=== PATIENT | male | born 1965 | race Caucasian/White ===

== ENCOUNTER 2017-11-08 15:11 | Emergency (ER) | payer SELFPAY ==
[2017-11-08 15:18] VITALS: BP 138/93; BMI 29.2
--- NOTE | 2017-11-08 15:42 | DR.GENAD ---
HPI - PCP Primary Care Physician: dr gill - HPI Comment HPI Comment: PATIENT SAID HE HAS ROTATORY CUFF INJURY ON THAT SAME SHOULDER. ROM DECREASE. PULSES INTACT. - Complaint/Symptoms Chief Complaint Doctors Comments: LEFT SHOULDER PAIN FOR DAYS. FELL LAST NIGHT AND FELL ON LT SHOULDER AND IS HAVING INCREASE PAIN SINCE. Chief Complaint:: pt stated he has been having problems with his left shoulder for over a month and last night he fell on his left shoulder causing more pain - Nurses notes reviewed Nurses Notes Review: Yes - Source History Provided: Patient - Mode of Arrival Mode of Arrival: Ambulatory - Timing Onset of Chief Complaint: 09/30/17 Came on: Suddenly - Duration Duration: Constant Duration: Days - Severity Severity: Moderate PMH - PMH Past Medical History: Yes Past Medical History: Hypertension Past Surgical History: Yes Surgical History: Ortho Surgery - Family History History of Family Medical Conditions: No - Social History Does patient currently use any type of tobacco product: No Have you used tobacco products in the last 12 months: No Type of Tobacco Use: None Does any household member use tobacco: Yes Alcohol Use: Occasionally Do you use any recreational Drugs:: No Lives With: Family Lives Where: Home - infectious screening In the last 2 months have you had wt loss of >10#?: NO Have you had fever, night sweats or hemotysis?: No Have you traveled outside the country in the last 6 months?: No Isolation: Standard ROS - Review of Systems Constitutional: No Symptoms Reported Eyes: No Symptoms Reported ENTM: No Symptoms Reported Respiratoy: No Symptoms Reported Cardiovascular: No Symptoms Reported Gastrointestinal/Abdominal: No Symptoms Reported Genitourinary: No Symptoms Reported Neurological: No Symptoms Reported Musculoskeletal: Left, Shoulder Integumentary: No Symptoms Reported Hematologic/Lymphatic: No Symptoms Reported Endocrine: No Symptoms Reported All Other Systems: Reviewed and Negative PE - Vital Signs Vitals: Temperature 98.7 F Pulse Rate 80 Respiratory Rate 16 Blood Pressure 138/93 O2 Sat by Pulse Oximetry 97 - General Limitations: No Limitations General Appearance: Alert - Head Head Exam: Normal Inspection - Eyes Eye exam: Normal Appearance - ENT ENT Exam: Normal External Ear Exam External Ear Exam: Normal External Inspection TM/Canal Exam: Bilateral Normal Nose Exam: Normal Nose Exam Mouth Exam: Normal Inspection Throat Exam: Normal Inspection - Neck Neck Exam: Normal Inspection - Chest Chest Inspection: Symmetric Chest Wall Rise - Respiratory Respiratory Exam: Normal Lung Sounds Bilat Respiratory Exam: Bilateral Clear to Auscultation - Cardiovascular Cardiovascular Exam: Regular Rate, Normal Rhythm, Normal Heart Sounds - Abdominal Exam Abdominal Exam: Normal Inspection - Extremities Extremities Exam: Tenderness (LT SHOULDER TENDER. VENUS.). negative: Full ROM ( VENUS) - Back Back Exam: Normal Inspection - Neurologic Neurological Exam: Alert, Oriented X3 - Psychiatric Psychiatric Exam: Normal Affect, Normal Mood - Skin Skin Exam: Normal Color MDM - Differential Diagnosis Differential Diagnosis: LEFT SHOULDER SPRAIN, STRAIN, FRACTURE, CONTUSION. Course - Treatment Treatment: SEE ORDERS. IM TORADOL IN ED. - Education/Counseling Education/Counseling: Patient, Education Educated On: Diagnosis, Needs for Follow Up ROR - XRAY XRAY Interpreted by: Radiologist XRAY Findings: REPORT DISCUSS WITH PATIENT. - Diagnosis Discharge Problem: Musculoskeletal pain Sprain of left shoulder Qualifiers: Encounter type: initial encounter Shoulder sprain type: unspecified sprain Qualified Code(s): S43.402A - Unspecified sprain of left shoulder joint, initial encounter - Discharge Plan Disposition: 01 HOME, SELF-CARE Condition: Stable Prescriptions: Cyclobenzaprine HCl [FLEXERIL 10 MG *] 10 mg PO TID PRN #20 tab PRN Reason: Ibuprofen [MOTRIN TAB 800 MG *] 800 mg PO Q8H PRN #30 tab PRN Reason: Pain/Inflammation Tramadol HCl 50 mg PO Q8H PRN #15 tablet PRN Reason: - Follow ups/Referrals Follow ups/Referrals: [facility],None [Primary Care Provider] - 3 days - Instructions Instructions: Shoulder Sprain, Musculoskeletal Pain Additional Instructions: RETURN TO ED IF WORSE.
[2017-11-08] MEDS ORDERED: TORADOL 60 MG VIAL IM ONE (15:56)
[2017-11-08] MEDS ORDERED: NORFLEX INJ IM ONE (15:56)
[2017-11-08] MEDS ORDERED: TORADOL 60 MG VIAL ONE (16:00)
[2017-11-08] MEDS ORDERED: NORFLEX INJ ONE (16:00)
--- NOTE | 2017-11-08 16:08 | RAD ---
Exam: Left shoulder three views History: Left shoulder pain Comparison: None Findings: Three views left shoulder demonstrate no evidence of acute bony abnormality or significant degenerative change. IMPRESSION: Negative left shoulder radiographs. Reported By:
== END 2017-11-08 16:38 | disposition home or self-care (01) ==
LOC: ER 15:23
DX: S43.402A Unspecified sprain of left shoulder joint, initial encounter (principal); M79.1 Myalgia; W19.XXXA Unspecified fall, initial encounter; Y92.9 Unspecified place or not applicable
CPT/HCPCS: 73030; 96372; 99282; J1885; J2360